=== PATIENT | male | born 1950 | race Caucasian/White ===

== ENCOUNTER 2017-04-28 04:38 | Inpatient (IN) | payer OTHER, MEDICARE ==
[~2017-04-28] VITALS: Ht 167.6 cm; Wt 88.2 kg
[~2017-04-28 04:38] MED LIST: ALBU90OI6 INH
[2017-04-28 05:04] LABS: PCO2 Arterial 53.9 mmHg (35-45); PO2 Arterial 102 mmHg (80-100); pH Blood Arterial 7.31 (7.35-7.45)
[2017-04-28 05:04] LABS: BASOPHILS ABSOLUTE AUTO 0.14 K/mm3 (0.00-0.23); BASOPHILS PERCENT AUTO 1 % (0-2); EOSINOPHILS ABSOLUTE AUTO 0.68 K/mm3 (0.00-0.68); EOSINOPHILS PERCENT AUTO 7 % (0-6); Hemoglobin 14.9 g/dL (13.5-17.5); IMMATURE GRAN ABSOLUTE AUTO 0.04 K/mm3 (0.00-0.10); IMMATURE GRAN PERCENT AUTO 0 % (0-1); LYMPHOCYTES ABSOLUTE AUTO 2.89 K/mm3 (0.84-5.20); LYMPHOCYTES PERCENT AUTO 29 % (21-46); MONOCYTES ABSOLUTE AUTO 0.98 K/mm3 (0.16-1.47); MONOCYTES PERCENT AUTO 10 % (4-13); Mean Corpuscular HGB 28.3 pg (26.0-34.0); Mean Corpuscular HGB Conc 31.7 g/dL (31.5-36.5); Mean Corpuscular Volume 89 fL (80-100); Mean Platelet Volume 8.7 fL (9.1-12.4); NEUTROPHILS ABSOLUTE AUTO 5.37 K/mm3 (1.96-9.15); NEUTROPHILS PERCENT AUTO 53 % (41-73); Platelet Count 371 K/mm3 (150-400); RDW Coefficient Variation 13.9 % (11.7-14.2); RDW Standard Deviation 44.8 fL (35.1-46.3); Red Blood Cell Count 5.27 M/mm3 (4.30-5.90)
[2017-04-28 05:24] LABS: Alanine Aminotransfer (ALT/SGP 23 U/L (12-78); Alk Phos 86 U/L (50-136); Anion Gap 8 mmol/L (6-16); Aspartate Aminotrans (AST/SGOT 13 U/L (12-37); Bilirubin, Total 0.3 mg/dL (0.1-1.0); Blood Urea Nitrogen 15 mg/dL (8-24); Bun/Creatinine Ratio 14.3 (12.0-20.0); CO2, Blood 26 mmol/L (21-32); Calcium, Blood 9.4 mg/dL (8.5-10.1); Chloride, Blood 106 mmol/L (98-108); Creatinine, Blood 1.05 mg/dL (0.60-1.20); Globulin, Blood 4.1 g/dL (2.2-4.0); Glomerular Filtration Rate >60 (60-); Glucose, Blood 114 mg/dL (70-99); Magnesium, Blood 2.4 mg/dL (1.6-2.4); Potassium, Blood 4.2 mmol/L (3.5-5.5); Sodium, Blood 140 mmol/L (136-145); Total Protein, Blood 8.1 g/dL (6.4-8.2)
[2017-04-28 06:10] LABS: Influenza A Negative (NEGATIVE); Influenza B Negative (NEGATIVE)
[2017-04-29 04:23] LABS: PCO2 Arterial 40.1 mmHg (35-45); PO2 Arterial 73.5 mmHg (80-100); pH Blood Arterial 7.41 (7.35-7.45)
[2017-04-29 05:31] LABS: BASOPHILS ABSOLUTE AUTO 0.01 K/mm3 (0.00-0.23); BASOPHILS PERCENT AUTO 0 % (0-2); EOSINOPHILS ABSOLUTE AUTO 0.01 K/mm3 (0.00-0.68); EOSINOPHILS PERCENT AUTO 0 % (0-6); Hematocrit 43.7 % (37.0-53.0); Hemoglobin 14.1 g/dL (13.5-17.5); IMMATURE GRAN PERCENT AUTO 1 % (0-1); LYMPHOCYTES ABSOLUTE AUTO 0.73 K/mm3 (0.84-5.20); LYMPHOCYTES PERCENT AUTO 5 % (21-46); MONOCYTES ABSOLUTE AUTO 0.63 K/mm3 (0.16-1.47); MONOCYTES PERCENT AUTO 4 % (4-13); Mean Corpuscular HGB 28.5 pg (26.0-34.0); Mean Corpuscular HGB Conc 32.3 g/dL (31.5-36.5); Mean Corpuscular Volume 88 fL (80-100); Mean Platelet Volume 8.9 fL (9.1-12.4); NEUTROPHILS ABSOLUTE AUTO 13.48 K/mm3 (1.96-9.15); NEUTROPHILS PERCENT AUTO 90 % (41-73); Platelet Count 322 K/mm3 (150-400); RDW Coefficient Variation 14.1 % (11.7-14.2); Red Blood Cell Count 4.95 M/mm3 (4.30-5.90); White Blood Cell Count 14.96 K/mm3 (4.00-11.30)
[2017-04-29 05:52] LABS: Anion Gap 8 mmol/L (6-16); Blood Urea Nitrogen 19 mg/dL (8-24); Bun/Creatinine Ratio 18.4 (12.0-20.0); CO2, Blood 27 mmol/L (21-32); Calcium, Blood 9.2 mg/dL (8.5-10.1); Chloride, Blood 104 mmol/L (98-108); Creatinine, Blood 1.03 mg/dL (0.60-1.20); Glomerular Filtration Rate >60 (60-); Glucose, Blood 137 mg/dL (70-99); Potassium, Blood 3.9 mmol/L (3.5-5.5); Sodium, Blood 139 mmol/L (136-145)
[2017-04-30 11:41] LABS: BASOPHILS ABSOLUTE AUTO 0.02 K/mm3 (0.00-0.23); BASOPHILS PERCENT AUTO 0 % (0-2); EOSINOPHILS ABSOLUTE AUTO 0.01 K/mm3 (0.00-0.68); EOSINOPHILS PERCENT AUTO 0 % (0-6); Hematocrit 39.7 % (37.0-53.0); Hemoglobin 12.5 g/dL (13.5-17.5); IMMATURE GRAN ABSOLUTE AUTO 0.19 K/mm3 (0.00-0.10); IMMATURE GRAN PERCENT AUTO 1 % (0-1); LYMPHOCYTES ABSOLUTE AUTO 0.69 K/mm3 (0.84-5.20); LYMPHOCYTES PERCENT AUTO 4 % (21-46); MONOCYTES ABSOLUTE AUTO 1.66 K/mm3 (0.16-1.47); MONOCYTES PERCENT AUTO 10 % (4-13); Mean Corpuscular HGB 28.5 pg (26.0-34.0); Mean Corpuscular HGB Conc 31.5 g/dL (31.5-36.5); Mean Corpuscular Volume 90 fL (80-100); Mean Platelet Volume 8.7 fL (9.1-12.4); NEUTROPHILS ABSOLUTE AUTO 13.78 K/mm3 (1.96-9.15); NEUTROPHILS PERCENT AUTO 84 % (41-73); Platelet Count 300 K/mm3 (150-400); RDW Coefficient Variation 14.3 % (11.7-14.2); RDW Standard Deviation 47.2 fL (35.1-46.3); Red Blood Cell Count 4.39 M/mm3 (4.30-5.90); White Blood Cell Count 16.35 K/mm3 (4.00-11.30)
[2017-04-30 12:18] LABS: Anion Gap 8 mmol/L (6-16); Blood Urea Nitrogen 28 mg/dL (8-24); Bun/Creatinine Ratio 25.7 (12.0-20.0); CO2, Blood 27 mmol/L (21-32); Calcium, Blood 8.9 mg/dL (8.5-10.1); Chloride, Blood 107 mmol/L (98-108); Creatinine, Blood 1.09 mg/dL (0.60-1.20); Glomerular Filtration Rate >60 (60-); Glucose, Blood 115 mg/dL (70-99); Potassium, Blood 4.1 mmol/L (3.5-5.5); Sodium, Blood 142 mmol/L (136-145)
[2017-05-02 05:21] LABS: BASOPHILS ABSOLUTE AUTO 0.01 K/mm3 (0.00-0.23); BASOPHILS PERCENT AUTO 0 % (0-2); EOSINOPHILS ABSOLUTE AUTO 0.21 K/mm3 (0.00-0.68); EOSINOPHILS PERCENT AUTO 2 % (0-6); Hematocrit 42.8 % (37.0-53.0); Hemoglobin 13.7 g/dL (13.5-17.5); IMMATURE GRAN ABSOLUTE AUTO 0.08 K/mm3 (0.00-0.10); IMMATURE GRAN PERCENT AUTO 1 % (0-1); LYMPHOCYTES ABSOLUTE AUTO 2.21 K/mm3 (0.84-5.20); LYMPHOCYTES PERCENT AUTO 22 % (21-46); MONOCYTES ABSOLUTE AUTO 0.93 K/mm3 (0.16-1.47); MONOCYTES PERCENT AUTO 9 % (4-13); Mean Corpuscular HGB 28.5 pg (26.0-34.0); Mean Corpuscular Volume 89 fL (80-100); Mean Platelet Volume 8.8 fL (9.1-12.4); NEUTROPHILS PERCENT AUTO 66 % (41-73); Platelet Count 304 K/mm3 (150-400); RDW Coefficient Variation 13.8 % (11.7-14.2); RDW Standard Deviation 45.1 fL (35.1-46.3); White Blood Cell Count 10.04 K/mm3 (4.00-11.30)
[2017-05-02 05:45] LABS: Alanine Aminotransfer (ALT/SGP 31 U/L (12-78); Albumin, Blood 3.2 g/dL (3.4-5.0); Albumin/Globulin Ratio 0.9 (0.8-1.8); Alk Phos 63 U/L (50-136); Anion Gap 6 mmol/L (6-16); Aspartate Aminotrans (AST/SGOT 13 U/L (12-37); Bilirubin, Total 0.4 mg/dL (0.1-1.0); Blood Urea Nitrogen 23 mg/dL (8-24); Bun/Creatinine Ratio 20.4 (12.0-20.0); CO2, Blood 30 mmol/L (21-32); Calcium, Blood 8.6 mg/dL (8.5-10.1); Chloride, Blood 107 mmol/L (98-108); Creatinine, Blood 1.13 mg/dL (0.60-1.20); Globulin, Blood 3.5 g/dL (2.2-4.0); Glomerular Filtration Rate >60 (60-); Glucose, Blood 85 mg/dL (70-99); Magnesium, Blood 2.6 mg/dL (1.6-2.4); Potassium, Blood 3.8 mmol/L (3.5-5.5); Sodium, Blood 143 mmol/L (136-145); Total Protein, Blood 6.7 g/dL (6.4-8.2)
[2017-05-04] MEDS ORDERED: Tessalon200 MG PO (12:08)
[2017-05-04] MEDS ORDERED: GUAI600T33 PO (12:08)
[2017-05-04] MEDS ORDERED: PANT40 PO (12:09)
[2017-05-04] MEDS ORDERED: TIOT18 INH (12:10)
[2017-05-04] MEDS ORDERED: (None)20 M1 PO (12:10)
[2017-05-04] MEDS ORDERED: FLUT1DIS5 INH (12:11)
[2017-05-04] MEDS ORDERED: ALBU2.5V5 INH (12:12)
== END 2017-05-04 12:54 | disposition home or self-care (01) | DRG 871 ==
LOC: ER 04:38 → PCU 05:43 → MEDS 05:43 → PCU 08:10 → MEDS 05-03 13:34 → ENPENDDIS 05-04 10:00 → MEDS 05-04 12:54
PROVIDERS: Emergency Medicine; Internal Medicine
PROC: 5A09557 Assistance with Respiratory Ventilation, Greater than 96 Consecutive Hours, Continuous Positive Airway Pressure (ICD-10-PCS; principal; 2017-04-28)
DX: A41.9 Sepsis, unspecified organism (principal); J96.02 Acute respiratory failure with hypercapnia; J96.01 Acute respiratory failure with hypoxia; J44.1 Chronic obstructive pulmonary disease with (acute) exacerbation; E11.9 Type 2 diabetes mellitus without complications; F41.9 Anxiety disorder, unspecified; D63.8 Anemia in other chronic diseases classified elsewhere; I10 Essential (primary) hypertension; R65.20 Severe sepsis without septic shock; K29.70 Gastritis, unspecified, without bleeding; I25.10 Atherosclerotic heart disease of native coronary artery without angina pectoris; T17.990A Other foreign object in respiratory tract, part unspecified in causing asphyxiation, initial encounter; Z95.1 Presence of aortocoronary bypass graft; Z95.5 Presence of coronary angioplasty implant and graft; Z79.899 Other long term (current) drug therapy; Z87.891 Personal history of nicotine dependence; Z66 Do not resuscitate; Z88.0 Allergy status to penicillin; Z91.018 Allergy to other foods
CPT/HCPCS: 36415; 36600; 71045; 71260; 76705; 80048; 80053; 82803; 83605; 83735; 84145; 85025; 87040; 87070; 87205; 87804; 93005; 93010; 94060; 94640; 94644; 94660; 94664; 94667; 94668; 94760; 94762; 96365; 96375; 97161; 97165; 97530; 98960; 99285; C9113; G8978; G8979; G8980; G8987; G8988; G8989; J0360; J0456; J1956; J2060; J2405; J2765; J2930; J3475; J7050; Q9967

== ENCOUNTER → 2021-10-19 | Outpatient (CLI) | payer OTHER ==
[~2021-10-19] MED LIST changes: +(None)20 M1 PO; +ALBU2.5V5 INH; +FLUT1DIS5 INH; +GUAI600T33 PO; +MECL25 PO; +PANT40 PO; +TIOT18 INH; +Tessalon200 MG PO
[2021-10-24 10:10] LABS: HSV-1 DNA Negative (Negative); HSV-2 DNA Negative (Negative)
== END | disposition home or self-care (01) ==
LOC: LAB SHORT 09:14
PROVIDERS: Physician Assistant Medical
DX: R21 Rash and other nonspecific skin eruption (principal)
CPT/HCPCS: 87529; 87798

== ENCOUNTER 2022-01-06 12:37 | Emergency (ER) | payer OTHER ==
[~2022-01-06] VITALS: Ht 175.3 cm; Wt 86.2 kg
[2022-01-06 13:35] LABS: Calcium, Ionized (POC) 1.18 mmol/L (1.10-1.46); Chloride (POC) 104 mmol/L (98-108); Creatinine (POC) 0.9 mg/dL (0.8-1.3); Glucose (ISTAT POC) 111 mg/dL (70-99); Potassium (POC) 3.9 mmol/L (3.5-5.5); Sodium (POC) 141 mmol/L (135-148); Total CO2 (POC) 25 mmol/L (21-32)
== END 2022-01-06 13:52 | disposition home or self-care (01) ==
LOC: ER 12:37
PROVIDERS: Emergency Medicine
DX: R20.2 Paresthesia of skin (principal); Z87.891 Personal history of nicotine dependence
CPT/HCPCS: 80047; 82947; 85014; 99284

== ENCOUNTER 2022-01-10 09:30 | Inpatient (IN) | payer OTHER ==
[~2022-01-10] VITALS: Ht 175.3 cm; Wt 77.7 kg
[2022-01-10 09:56] LABS: BASOPHILS ABSOLUTE AUTO 0.06 K/mm3 (0.00-0.23); BASOPHILS PERCENT AUTO 1 % (0-2); EOSINOPHILS ABSOLUTE AUTO 0.13 K/mm3 (0.00-0.68); EOSINOPHILS PERCENT AUTO 2 % (0-6); Hematocrit 48.5 % (37.0-53.0); Hemoglobin 16.3 g/dL (13.5-17.5); IMMATURE GRAN ABSOLUTE AUTO 0.02 K/mm3 (0.00-0.10); IMMATURE GRAN PERCENT AUTO 0 % (0-1); LYMPHOCYTES ABSOLUTE AUTO 2.12 K/mm3 (0.84-5.20); LYMPHOCYTES PERCENT AUTO 31 % (21-46); MONOCYTES ABSOLUTE AUTO 0.61 K/mm3 (0.16-1.47); MONOCYTES PERCENT AUTO 9 % (4-13); Mean Corpuscular HGB 29.5 pg (26.0-34.0); Mean Corpuscular HGB Conc 33.6 g/dL (31.5-36.5); Mean Corpuscular Volume 88 fL (80-100); Mean Platelet Volume 9.1 fL (9.1-12.4); NEUTROPHILS ABSOLUTE AUTO 3.99 K/mm3 (1.96-9.15); NEUTROPHILS PERCENT AUTO 58 % (41-73); Platelet Count 328 K/mm3 (150-400); RDW Coefficient Variation 13.3 % (11.7-14.2); Red Blood Cell Count 5.53 M/mm3 (4.30-5.90); White Blood Cell Count 6.93 K/mm3 (4.00-11.30)
[2022-01-10 10:17] LABS: Alanine Aminotransfer (ALT/SGP 26 U/L (12-78); Albumin, Blood 4.2 g/dL (3.4-5.0); Albumin/Globulin Ratio 1.1 (0.8-1.8); Alk Phos 94 U/L (50-136); Anion Gap 6 mmol/L (6-16); Aspartate Aminotrans (AST/SGOT 16 U/L (12-37); Bilirubin, Total 0.3 mg/dL (0.1-1.0); Blood Urea Nitrogen 17 mg/dL (8-24); CO2, Blood 27 mmol/L (21-32); Calcium, Blood 10.1 mg/dL (8.5-10.1); Chloride, Blood 110 mmol/L (98-108); Creatinine, Blood 0.85 mg/dL (0.60-1.20); Ethanol (Alcohol), Blood, Med <3 mg/dL; Globulin, Blood 3.9 g/dL (2.2-4.0); Glomerular Filtration Rate 92 (60-); Glucose, Blood 121 mg/dL (70-99); Potassium, Blood 3.9 mmol/L (3.5-5.5); Sodium, Blood 143 mmol/L (136-145); Total Protein, Blood 8.1 g/dL (6.4-8.2)
[2022-01-10 11:18] LABS: International Normalized Ratio 1.04; Prothrombin Time Results 10.9 Sec (9.7-11.5)
[2022-01-10] MEDS ORDERED: NITR.4SL SL (11:43)
--- NOTE | 2022-01-10 18:49 | NUR ---
SHIFT SUMMARY PT ADMITTED FROM ED FOR CVA. PT HAS LEFT SIDED DEFICITS WITH SLURRED SPEACH AT TIMES. A&OX4. PHYSICAL THERAPY EVALUATED PT AND RECOMENDED 1 ASSIST WITH BED ALARM ON. PT USES CALL LIGHT APPORPRIATELY. BED IN LOWEST POSITION AND CALL LIGHT IN REACH.
--- NOTE | 2022-01-11 04:39 | NUR ---
OCEAN FISHING GUIDE SUMMARY: A&Ox4. LEFT-SIDED DEFICIT RELATED TO CVA IMPAIRING GAIT AND AMBULATION, BUT HE STATES HE HAS BEEN DEALING WITH THIS LEFT-SIDED DEFICIT AND DIZZINESS FOR QUITE SOME TIME AND IS ACCLIMATED TO IT AND DOES NOT CALL WHEN HE NEEDS TO USE THE BATHROOM. ULTIMATELY, THIS RN ASSISTED HIM IN AMBULATING TO THE BATHROOM ON THREE OCCASIONAS. ERGO, BED ALARM HAS BEEN ACTIVATED. REFUSED IV FLUIDS, STATING HE WOULD PREFER TO REPLENISH FLUIDS PO AND HAS CONSUMED 80oz H2O THIS SHIFT. EDUCATION REGARDING FLUSHING OUT SODIUM AND IV FLUIDS HELPING TO REPLENISH ELECTROLYTES, BUT HE CONTINUES TO DECLINE. NO C/O PAIN OR DISCOMFORT. DID NOT SLEEP WELL, STATING HE DOES NOT USUALLY SLEEP WELL AT HOME, AND REALLY DOES NOT LIKE THESE BEDS THEY ARE UNCOMFORTABLE. TELE SINUS RHYTHM @ 62bpm. MRI ORDERED FOR TODAY. WILL REPORT TO ONCOMING RN.
[2022-01-11 05:15] LABS: CHOL/HDL RATIO 7.9; Cholesterol 277 mg/dL (50-200); HDL Cholesterol 35 mg/dL (>39); LDL/HDL RATIO 5.3; Low Density Lipoprotein Chol 186 mg/dL (0-110); Triglycerides 278 mg/dL (30-160); Very Low Density Lipoprot Chol 55 mg/dL (6-32)
--- NOTE | 2022-01-11 17:22 | NUR ---
LATE ENTRY/MRI 1545: PT TAKEN DOWN FOR MRI. RETURNED TO ROOM WITHOUT HAVING MRI DONE. PT STATES HE IS CLAUSTROPHOBIC. OFFERED PT THE OPTION OF MAKING A PHONE CALL TO MD TO TRY AND OBTAIN AN ORDER FOR ANTI-ANXIETY MEDICATION. PT REFUSED MEDICATION AND REFUSED HAVING THE MRI. PLACED A CALL TO DR. ROUSSEAU ([phone]) AND DEEPA.
--- NOTE | 2022-01-11 18:29 | NUR ---
SHIFT SUMMARY PT A&O X 4. VSS. PT WITH L SIDED WEAKNESS D/T STROKE. PT C/O DIZZINESS OFF & ON UPON RISING TO STANDING POSITION. C/O NOT HAVING HIS INDEPENDENCE TO WALK TO THE RESTROOM OR TO GET UP TO CHAIR OR BACK TO BED WHEN HE WANTS. ATTEMPTS TO EDUCATE PT ARE MET WITH HIS RESISTANCE. HE WILL RELUCTANTLY USE A WALKER WHEN ENCOURAGED TO DO SO. SAFETY REGARDING MOBILITY HAS BEEN REINFORCED TO HIM. HE HAS REFUSED HIS MRI THAT WAS ORDERED, SNF PLACEMENT & HOME HE[facility] UPON DC. LVM ON MD's PHONE REGARDING PT'S REFUSAL OF THE MRI.
--- NOTE | 2022-01-12 04:33 | NUR ---
FRUIT HARVEST MACHINE OPERATOR SUMMARY: A&Ox4. NONCOMPLIANT AND UNCOOPERATIVE WITH CARE. DID NOT USE CALL LIGHT ALL NIGHT AND REFUSED ALL CARE. UPSET AND WOULD LIKE HIS HOME MEDICATIONS TO BE RESTARTED AND IS UPSET THEY ARE UNAVAILABLE. STATES HE WOULD HAVE LEFT ALREADY, HAD HE HAD A RIDE HOME. CONTINUES TO C/O INTERMITTENT NUMBNESS AND SLURRED SPEECH. TELE SINUS @ 62 bpm. NO ACUTE CONCERNS T/O THE NIGHT AND HAS STAYED IN HIS BED MAJORITY OF THE NIGHT. WILL REPORT TO ONCOMING RN.
[2022-01-12] MEDS ORDERED: ASPI81CH PO (11:12)
[2022-01-12] MEDS ORDERED: ACET325 PO (11:12)
[2022-01-12] MEDS ORDERED: ATOR40TA PO (11:13)
[2022-01-12] MEDS ORDERED: CLOP75 PO (11:15)
[2022-01-12] MEDS ORDERED: Prinivil10 MG PO (11:15)
--- NOTE | 2022-01-12 16:02 | NUR ---
LATE ENTRY/DC HOME 1305: WRITTEN & VERBAL DC INSTRUCTIONS GIVEN TO PT WITH GOOD UNDERSTANDING VERBALIZED BY PT. ALL QUESTIONS ANSWERED. PIV DC'D WITH CATH TIP INTACT, NO REDNESS OR SWELLING NOTED. ALL NEW SCRIPTS FAXED TO [facility] PER PT REQUEST. PT TO TAXI VIA W/C WITH ALL PERSONAL BELONGINGS.
== END 2022-01-12 13:33 | disposition home health service (06) | DRG 65 ==
LOC: ER 09:30 → ERHOLD 13:12 → MEDS 13:12
PROVIDERS: Emergency Medicine; Nurse Practitioner Acute Care; ADMIT Internal Medicine
DX: I63.9 Cerebral infarction, unspecified (principal); G81.94 Hemiplegia, unspecified affecting left nondominant side; I50.22 Chronic systolic (congestive) heart failure; Z66 Do not resuscitate; I25.10 Atherosclerotic heart disease of native coronary artery without angina pectoris; R47.1 Dysarthria and anarthria; R20.0 Anesthesia of skin; I11.0 Hypertensive heart disease with heart failure; E11.9 Type 2 diabetes mellitus without complications; J44.9 Chronic obstructive pulmonary disease, unspecified; Z95.1 Presence of aortocoronary bypass graft; Z95.5 Presence of coronary angioplasty implant and graft; Z98.890 Other specified postprocedural states; Z87.891 Personal history of nicotine dependence; Z88.0 Allergy status to penicillin; Z91.010 Allergy to peanuts
CPT/HCPCS: 36415; 70450; 70496; 70498; 80053; 80061; 82947; 83036; 85025; 85610; 85730; 92526; 92610; 93005; 93010; 93306; 94760; 97112; 97116; 97162; 97166; 97530; 99285-25; A9270; G0480; J1650; Q9967

== ENCOUNTER 2022-10-09 09:39 | Inpatient (IN) | payer OTHER ==
[~2022-10-09] VITALS: Ht 175.3 cm; Wt 82.0 kg
[~2022-10-09 09:39] MED LIST changes: +ACET325 PO; +ASPI81CH PO; +ATOR40TA PO; +CLOP75 PO; +NITR.4SL SL; +Prinivil10 MG PO
[2022-10-09 11:50] LABS: BASOPHILS ABSOLUTE AUTO 0.06 K/mm3 (0.00-0.23); BASOPHILS PERCENT AUTO 1 % (0-2); EOSINOPHILS ABSOLUTE AUTO 0.09 K/mm3 (0.00-0.68); EOSINOPHILS PERCENT AUTO 1 % (0-6); IMMATURE GRAN ABSOLUTE AUTO 0.03 K/mm3 (0.00-0.10); IMMATURE GRAN PERCENT AUTO 0 % (0-1); LYMPHOCYTES PERCENT AUTO 14 % (21-46); MONOCYTES ABSOLUTE AUTO 0.56 K/mm3 (0.16-1.47); MONOCYTES PERCENT AUTO 7 % (4-13); Mean Corpuscular HGB 29.6 pg (26.0-34.0); Mean Corpuscular HGB Conc 32.6 g/dL (31.5-36.5); Mean Corpuscular Volume 91 fL (80-100); NEUTROPHILS ABSOLUTE AUTO 6.17 K/mm3 (1.96-9.15); NEUTROPHILS PERCENT AUTO 77 % (41-73); Platelet Count 271 K/mm3 (150-400); RDW Standard Deviation 46.3 fL (35.1-46.3); Red Blood Cell Count 5.07 M/mm3 (4.30-5.90); White Blood Cell Count 8.01 K/mm3 (4.00-11.30)
[2022-10-09 12:15] LABS: Albumin, Blood 4.1 g/dL (3.4-5.0); Albumin/Globulin Ratio 1.1 (0.8-1.8); Bilirubin, Total 0.3 mg/dL (0.1-1.0); Bun/Creatinine Ratio 22.1 (12.0-20.0); Calcium, Blood 9.6 mg/dL (8.5-10.1); Creatinine, Blood 0.86 mg/dL (0.60-1.20); Globulin, Blood 3.7 g/dL (2.2-4.0); Potassium, Blood 3.9 mmol/L (3.5-5.5); Total Protein, Blood 7.8 g/dL (6.4-8.2)
[2022-10-09 16:32] LABS: Anti-Xa UFH, PHA Monitoring <0.10 IU/mL; International Normalized Ratio 0.97; Prothrombin Time Results 10.2 Sec (9.7-11.5)
[2022-10-09 17:35] VITALS: BP 157/73
--- NOTE | 2022-10-09 18:09 | NUR ---
ADMIT NOTE PT IS ALERT AND ORIENTED X 4, VSS, HE IS ON RA. HE DENIES FEELINGS OF CHEST PAIN/PRESSURE AT THIS TIME, HE DENIES FEELING SOB WELL NAUSEA/VOMITTING. HEPARIN DRIP STARTED BY THIS RN. PT WAS ORIENTED TO ROOM/UNIT. HE WAS EDUCATED REGARDING SAFETY AND NEED TO CALL FOR ASSISTANCE DUE TO HEPARIN DRIP. NO COUGH NOTED. CARDIAC DIET ORDER IN PLACE BUT PT WILL BE NPO AT MIDNIGHT. WILL CONTINUE TO MONITOR UNITL REPORT GIVEN.
[2022-10-09 20:39] VITALS: BP 143/67
[2022-10-09 23:12] VITALS: BP 127/67
[2022-10-10 01:58] VITALS: BP 121/82
[2022-10-10 02:16] LABS: BASOPHILS ABSOLUTE AUTO 0.06 K/mm3 (0.00-0.23); BASOPHILS PERCENT AUTO 1 % (0-2); EOSINOPHILS ABSOLUTE AUTO 0.13 K/mm3 (0.00-0.68); EOSINOPHILS PERCENT AUTO 2 % (0-6); Hematocrit 40.6 % (37.0-53.0); Hemoglobin 13.7 g/dL (13.5-17.5); IMMATURE GRAN ABSOLUTE AUTO 0.05 K/mm3 (0.00-0.10); IMMATURE GRAN PERCENT AUTO 1 % (0-1); LYMPHOCYTES ABSOLUTE AUTO 1.69 K/mm3 (0.84-5.20); LYMPHOCYTES PERCENT AUTO 27 % (21-46); MONOCYTES ABSOLUTE AUTO 0.62 K/mm3 (0.16-1.47); MONOCYTES PERCENT AUTO 10 % (4-13); Mean Corpuscular HGB 29.5 pg (26.0-34.0); Mean Corpuscular HGB Conc 33.7 g/dL (31.5-36.5); Mean Corpuscular Volume 87 fL (80-100); Mean Platelet Volume 9.1 fL (9.1-12.4); NEUTROPHILS ABSOLUTE AUTO 3.83 K/mm3 (1.96-9.15); NEUTROPHILS PERCENT AUTO 60 % (41-73); Platelet Count 255 K/mm3 (150-400); RDW Standard Deviation 44.5 fL (35.1-46.3); Red Blood Cell Count 4.65 M/mm3 (4.30-5.90); White Blood Cell Count 6.38 K/mm3 (4.00-11.30)
[2022-10-10 02:36] LABS: Anion Gap 8 mmol/L (6-16); Blood Urea Nitrogen 22 mg/dL (8-24); Bun/Creatinine Ratio 25.3 (12.0-20.0); CHOL/HDL RATIO 6.9; CO2, Blood 25 mmol/L (21-32); Chloride, Blood 111 mmol/L (98-108); Cholesterol 288 mg/dL (50-200); Creatinine, Blood 0.87 mg/dL (0.60-1.20); Glomerular Filtration Rate 91 (60-); Glucose, Blood 100 mg/dL (70-99); HDL Cholesterol 42 mg/dL (>39); Low Density Lipoprotein Chol 210 mg/dL (0-110); Potassium, Blood 3.8 mmol/L (3.5-5.5); Sodium, Blood 144 mmol/L (136-145); Triglycerides 180 mg/dL (30-160); Very Low Density Lipoprot Chol 36 mg/dL (6-32)
--- NOTE | 2022-10-10 04:12 | NUR ---
SHIFT SUMMARY PATIENT IS ALERT AND ORIENTED X4. 02 SATS >95% ON RA, DENIES SOB. HR SR 60s, BP STABLE. DENIES CP/PRESSURE THIS SHIFT. UP TO BATHROOM INDEPENDENT. NPO SINCE MIDNIGHT. HEPARIN DRIP INFUSING. CALL LIGHT IN REACH
--- NOTE | 2022-10-10 05:01 | NUR ---
IGNITION RISK ASSESSED THIS SHIFT, PATIENT STATES UNDERSTANDING. NO RISK AT THIS TIME.
[2022-10-10 07:25] VITALS: BP 131/62
--- NOTE | 2022-10-10 09:19 | NUR ---
MORNING EVENT WITH AGGITATION. DR. DURAN AND CERTIFIED PARALEGAL WERE IN THE PT'S ROOM. I STEPPED IN TO HEAR THE CONVERSATIONS. DR. DURAN EXPLAINED THAT THE PT WILL STOPP HIS HEP GTT AND AFTER THE SCHO IS COMPLETE THEN HE WILL GO IN FOR HIS ANGIO. I STEPPED OUT TO HELP ANOTHER PT AND GOT CALLED BACK TO THE ROOM BY THE FRYLINE ATTENDANT. THE PT WAS YELLING AT THE CERTIFIED PARALEGAL, COMPLAING OF CHEST PAIN, WAS REFUSING CARE, AND WAS THREATING TO LEAVE BECAUSE HE WAS IN PAIN. PT WAS GOING TO TAKE HIS HOME NITRO PILLS, AN ORDER WAS OBTAINED. THE PT WAS YELLING AT STAFF, CUTTING OFF STAFF WE WERE TRYING TO SPEAK TO HIM. VAT TENDER, BEVERAGE STEWARD, AND RALF ELDRIDGE IN THE ROOM WITH THE PT. WE TRIED EXPLAINING THAT THE ANGIO ANDD ECHO WILL HELP DETERMINE WHY THE PT IS HAVING PAIN. PT STILL AGGITATED AND DR. DURAN CAME BACK TO BEDSIDE. HE WAS ABLE TO GE THE PT TO FINISH THE ECHO. DR. DURAN CALLED THE PT'S SISTER AND TALKED ABOUT CONCERNS FOR DOING THE ANGIO. THE SISTER, BEVERAGE STEWARD GABE, AND DR. JOSE ALL IN AGREEMENT TO STOP THE ANGIO. DR. JOSE, BEVERAGE STEWARD, AND MYSELF WERE IN THE ROOM AFTER THE ECHO WAS COMPLETE TO TELL THE PT THAT HE WILL BE MEDICALLY MANAGED BY THE HOSPITALIST. ANGIO IS TOO HIGH OF RISK WITH THE PT'S CARDIAC HISTORY, NONCOMPLIANCE WITH MEDICATIONS, HX. OF PTSD, AND THE AGGITATION THE PT HAS BEEN SHOWING. AFTER DR. JOSE LEFT THE PT STARTED TO YELL AT THE BEVERAGE STEWARD GABE ABOUT HOW WE ARE NOT DOING ANYTHING AND HOW HE HAS BEEN DEALING WITH THIS FOR 12 YEARS. SILVIANO ELDRIDGE REICFORCED THAT THE PT CAN NOT SPEAK TO STAFF IN THAT MANNOR. PT IS THREATENING TO LEAVE AMA. MAD CONSULT PLACED. SEE NOTES FOR UPDATES.
--- NOTE | 2022-10-10 10:26 | NUR ---
MAD Consult: Met with Security, Clincal Coordinator, Charge Nurse, Nursing Talent Engineer, and patient's nurse. Overall feeling was that patient had already received instruction that verbally abusive behavior was unacceptable and that having us go in and speak with him would only make things worse. Asked that a Behavioral IRIS be placed and to call me or Security if staff changed their minds.
[2022-10-10 11:02] VITALS: BP 150/69
--- NOTE | 2022-10-10 11:25 | NUR ---
Pt. is awake in bed and welcomed my visit. Pt. is unsettled by several things including the feeling that the source of his pain and discomfort has been identified for many years. Listen with empathy and a calming presence. Facilitated a life review where Pt. verbalized that he had served in [place] and has PTSD. Again listen with empathy and honor. Pt. displays evidence of greatest agitation when speaking about his den. Considered matters of den and belief for quite some time. Pt. verbally anckowledged that he knows his bold speach a problem. Some Manufacturing Engineering Technician senior genetic counselor is given. Prayed with Pt. Pt. displayed some evidence of trust, and welcomed this billing analyst to return.
[2022-10-10 16:14] VITALS: BP 150/56
--- NOTE | 2022-10-10 17:05 | NUR ---
SHIFT SUMMARY PT IS A&OX4. HE HAS BEEN VERY IRRITABLE TODAY BUT SEEMS TO ACT MORE APPROPRIATE WHEN FAMILY IS IN THE ROOM. SEE MORNING NOTE ABOUT AGGITATION. PT WAS PLACED ON A CARDIAC DIET AND HIS ANGINA IS GOING TO BE MANAGED MEDICALLY. PT IS ON A HEP GTT, STARTED ON PLAVIX, AND IS GETTING IMDUR IN THE MORNINGS. PT HAS AMBUALTED THE UNIT AND IS IND IN THE ROOM. V/S STABLE. NO MORE REPORTS OF ANGINA SINE THE MORNINGS EPISODE. PT ON RA AND DENIES ANY SOB. BED IN LOW, CALL LIGHT IN REACH. PT AND FAMILY ASSESSED/EDUCATED ON FIRE IGNITION RISKS AND SAFTEY.
[2022-10-10 19:59] VITALS: BP 122/61
[2022-10-10 23:56] VITALS: BP 118/47
[2022-10-11 03:32] VITALS: BP 131/59
--- NOTE | 2022-10-11 06:51 | NUR ---
SHIFT SUMMARY PATIENT ALERT AND ORIENTED X4. INDEPENDENT IN HIS ROOM. PATIENT DENIES SHORTNESS OF BREATH. ABOUT 0300 PATIENT REPORTED EXPERIENCING RIGHT SIDED CHEST PAIN RATED 8/10, RESOLVED AFTER TWO DOSES OF NITRO. PATIENT WAS AGITATED AND ASKING WHY HE WASN'T ABLE TO GET AN ANGIOGRAM. PATIENT REFUSED HIS MORNING LAB DRAW AND IS REFUSING TO GIVE UP HIS NITRO TABS THAT HE KEEPS IN HIS SHIRT POCKET, SELF ADMINISTERED A DOSE AROUND 0630 WITHOUT INFORMING THIS RN. PATIENT EDUCATED THAT NITRO REDUCES BLOOD PRESSURE AND THAT HE AT LEAST NEEDS TO INFORM HIS NURSE SO THAT HIS BLOOD PRESSURE CAN BE MONITORED. PATIENT STATED THAT "I GET TIRED OF PRESSING THE BUTTON" AND "I JUST WANT TO UNPLUG MYSELF FROM EVERYTHING AND WALK OUT OF HERE." PATIENT EDUCATED ON FIRE SAFETY AND IGNITION SOURCES IN THE HOSPITAL. WILL CONTINUE TO MONITOR. CALL LIGHT WITHIN REACH.
[2022-10-11 07:25] VITALS: BP 148/69
[2022-10-11 08:33] LABS: BASOPHILS ABSOLUTE AUTO 0.07 K/mm3 (0.00-0.23); BASOPHILS PERCENT AUTO 1 % (0-2); EOSINOPHILS ABSOLUTE AUTO 0.23 K/mm3 (0.00-0.68); EOSINOPHILS PERCENT AUTO 3 % (0-6); Hematocrit 44.5 % (37.0-53.0); Hemoglobin 14.9 g/dL (13.5-17.5); IMMATURE GRAN ABSOLUTE AUTO 0.02 K/mm3 (0.00-0.10); IMMATURE GRAN PERCENT AUTO 0 % (0-1); LYMPHOCYTES ABSOLUTE AUTO 2.63 K/mm3 (0.84-5.20); LYMPHOCYTES PERCENT AUTO 31 % (21-46); MONOCYTES ABSOLUTE AUTO 0.68 K/mm3 (0.16-1.47); MONOCYTES PERCENT AUTO 8 % (4-13); Mean Corpuscular HGB 29.9 pg (26.0-34.0); Mean Corpuscular HGB Conc 33.5 g/dL (31.5-36.5); Mean Corpuscular Volume 89 fL (80-100); Mean Platelet Volume 8.9 fL (9.1-12.4); NEUTROPHILS ABSOLUTE AUTO 4.78 K/mm3 (1.96-9.15); NEUTROPHILS PERCENT AUTO 57 % (41-73); Platelet Count 298 K/mm3 (150-400); RDW Coefficient Variation 14.2 % (11.7-14.2); RDW Standard Deviation 45.7 fL (35.1-46.3); Red Blood Cell Count 4.98 M/mm3 (4.30-5.90); White Blood Cell Count 8.41 K/mm3 (4.00-11.30)
[2022-10-11 09:02] LABS: Bun/Creatinine Ratio 21.7 (12.0-20.0); Calcium, Blood 9.4 mg/dL (8.5-10.1); Creatinine, Blood 0.92 mg/dL (0.60-1.20); Potassium, Blood 3.9 mmol/L (3.5-5.5)
--- NOTE | 2022-10-11 12:24 | NUR ---
MORNING SUMMARY PT IS A&OX4, IND IN THE ROOM, AND HAS BEEN CALLING ME APPROPRAITELY. HE IS VERRY IRRITABLE AND WAS REFUSING TO GET LABS AND GET CARE FROM OTHER STAFF MEMEBERS. THE PT AND I HAVE BUILT DECENT REPPORT AND I WAS ABLE HIM TO GET HIM TO ALLOW A BLOOD DRAW FROM LAB. PT DID HAVE SOME ANGINA THIS AM AND HIS LONG ACTING NITRATE WAS CHANGE TO TID SO HE HAS BETTER COVERAGE. FAMILY AT BEDSIDE AND THE PT IS PENDING DISCHARGE. HEP GTT DISCONTINUED FOR DISCHARGE. SEE NOTES FOR D/C SUMMARY.
[2022-10-11] MEDS ORDERED: Acetaminophen650 M1 PO (12:30)
[2022-10-11] MEDS ORDERED: ATOR80 PO (12:30)
[2022-10-11] MEDS ORDERED: Prinivil10 MG PO (12:31)
[2022-10-11] MEDS ORDERED: CLOP75 PO (12:31)
[2022-10-11] MEDS ORDERED: METO25 PO (12:32)
[2022-10-11] MEDS ORDERED: ISODIN10 PO (12:33)
== END 2022-10-11 13:15 | disposition home or self-care (01) | DRG 281 ==
LOC: ER 09:39 → MEDS 09:40 → PCU 17:31
PROVIDERS: Student in an Organized Health Care Education/Training Program; ADMIT Internal Medicine
DX: I21.4 Non-ST elevation (NSTEMI) myocardial infarction (principal); I50.22 Chronic systolic (congestive) heart failure; I69.354 Hemiplegia and hemiparesis following cerebral infarction affecting left non-dominant side; I25.10 Atherosclerotic heart disease of native coronary artery without angina pectoris; I11.0 Hypertensive heart disease with heart failure; E11.9 Type 2 diabetes mellitus without complications; Z66 Do not resuscitate; E78.5 Hyperlipidemia, unspecified; J44.9 Chronic obstructive pulmonary disease, unspecified; Z91.148 Patient's other noncompliance with medication regimen for other reason; Z88.0 Allergy status to penicillin; Z91.018 Allergy to other foods; Z79.899 Other long term (current) drug therapy; Z79.82 Long term (current) use of aspirin; Z79.02 Long term (current) use of antithrombotics/antiplatelets; Z79.811 Long term (current) use of aromatase inhibitors; Z95.1 Presence of aortocoronary bypass graft; Z98.890 Other specified postprocedural states; Z95.5 Presence of coronary angioplasty implant and graft; Z87.891 Personal history of nicotine dependence
CPT/HCPCS: 36415; 71046; 71260; 80048; 80053; 80061; 84484; 85025; 85520; 85610; 85730; 93005; 93010; 93306; 94760; 96374; 99285-25; A9270; J1644; Q9967

== ENCOUNTER 2022-12-29 20:21 | Emergency (ER) | payer OTHER ==
[~2022-12-29] VITALS: Ht 175.3 cm; Wt 77.1 kg
[~2022-12-29 20:21] MED LIST changes: +ATOR80 PO; +Acetaminophen650 M1 PO; +ISODIN10 PO; +METO25 PO
[2022-12-29 21:26] LABS: BASOPHILS ABSOLUTE AUTO 0.05 K/mm3 (0.00-0.23); BASOPHILS PERCENT AUTO 1 % (0-2); EOSINOPHILS ABSOLUTE AUTO 0.05 K/mm3 (0.00-0.68); EOSINOPHILS PERCENT AUTO 1 % (0-6); Hematocrit 47.7 % (37.0-53.0); Hemoglobin 17.3 g/dL (13.5-17.5); IMMATURE GRAN ABSOLUTE AUTO 0.15 K/mm3 (0.00-0.10); IMMATURE GRAN PERCENT AUTO 1 % (0-1); LYMPHOCYTES ABSOLUTE AUTO 2.45 K/mm3 (0.84-5.20); LYMPHOCYTES PERCENT AUTO 23 % (21-46); MONOCYTES ABSOLUTE AUTO 2.13 K/mm3 (0.16-1.47); MONOCYTES PERCENT AUTO 20 % (4-13); Mean Corpuscular HGB 29.6 pg (26.0-34.0); Mean Corpuscular HGB Conc 36.3 g/dL (31.5-36.5); Mean Corpuscular Volume 82 fL (80-100); Mean Platelet Volume 9.1 fL (9.1-12.4); NEUTROPHILS ABSOLUTE AUTO 6.01 K/mm3 (1.96-9.15); NEUTROPHILS PERCENT AUTO 55 % (41-73); Platelet Count 281 K/mm3 (150-400); RDW Coefficient Variation 13.1 % (11.7-14.2); RDW Standard Deviation 38.1 fL (35.1-46.3); Red Blood Cell Count 5.84 M/mm3 (4.30-5.90); White Blood Cell Count 10.84 K/mm3 (4.00-11.30)
[2022-12-29] MEDS ORDERED: EZET10 PO (21:36)
[2022-12-29] MEDS ORDERED: Carvedilol12.5 MG PO (21:36)
[2022-12-29 23:14] LABS: Albumin/Globulin Ratio 0.1 (0.8-1.8); Bilirubin, Total 0.5 mg/dL (0.1-1.0); Bun/Creatinine Ratio 59.6 (12.0-20.0); Calcium, Blood 9.9 mg/dL (8.5-10.1); Creatinine, Blood 1.36 mg/dL (0.60-1.20); Globulin, Blood 6.9 g/dL (2.2-4.0); Potassium, Blood 3.9 mmol/L (3.5-5.5); Total Protein, Blood 7.8 g/dL (6.4-8.2)
[2022-12-29 23:15] LABS: Albumin, Blood 0.9 g/dL (3.4-5.0)
[2022-12-29 23:53] LABS: Influenza A, PCR NEGATIVE (NEGATIVE); Influenza B, PCR NEGATIVE (NEGATIVE); Resp Syncytial Virus, PCR NEGATIVE (NEGATIVE); SARS-Cov-2 (COVID-19) PCR, MMC NEGATIVE (NEGATIVE)
[2022-12-30] MEDS ORDERED: Pepcid20 MG PO (00:51)
[2022-12-30] MEDS ORDERED: ONDA4ODT MM (00:51)
[2022-12-30] MEDS ORDERED: CARAFATE1 GM PO (05:47)
[2022-12-30 06:24] VITALS: BP 129/60
== END 2022-12-30 07:04 | disposition home or self-care (01) ==
LOC: ER 20:21
PROVIDERS: Emergency Medicine
DX: R10.13 Epigastric pain (principal); R11.2 Nausea with vomiting, unspecified; E86.0 Dehydration; Z20.822 Contact with and (suspected) exposure to COVID-19; I10 Essential (primary) hypertension; J44.9 Chronic obstructive pulmonary disease, unspecified; Z88.0 Allergy status to penicillin; Z91.018 Allergy to other foods; Z79.899 Other long term (current) drug therapy; Z79.82 Long term (current) use of aspirin
CPT/HCPCS: 0241U; 74177; 80053; 83690; 83880; 84484; 85025; 93005; 93010; 96361; 96374; 96375; 99285-25; A9270; C9113; J2405; J7030; Q9967

== ENCOUNTER 2023-01-25 05:33 | Inpatient (IN) | payer OTHER ==
[2023-01-25] VITALS (41 sets, daily range): BP systolic 110–141; BP diastolic 44–93
[~2023-01-25] VITALS: Ht 175.3 cm; Wt 72.8 kg
[~2023-01-25 05:33] MED LIST changes: +CARAFATE1 GM PO; +Carvedilol12.5 MG PO; +EZET10 PO; +ONDA4ODT MM; +Pepcid20 MG PO
[2023-01-25 06:00] LABS: BASOPHILS ABSOLUTE AUTO 0.05 K/mm3 (0.00-0.23); BASOPHILS PERCENT AUTO 1 % (0-2); EOSINOPHILS ABSOLUTE AUTO 0.28 K/mm3 (0.00-0.68); EOSINOPHILS PERCENT AUTO 5 % (0-6); Hematocrit 40.8 % (37.0-53.0); Hemoglobin 13.5 g/dL (13.5-17.5); IMMATURE GRAN ABSOLUTE AUTO 0.01 K/mm3 (0.00-0.10); IMMATURE GRAN PERCENT AUTO 0 % (0-1); LYMPHOCYTES ABSOLUTE AUTO 1.91 K/mm3 (0.84-5.20); LYMPHOCYTES PERCENT AUTO 35 % (21-46); MONOCYTES ABSOLUTE AUTO 0.52 K/mm3 (0.16-1.47); MONOCYTES PERCENT AUTO 10 % (4-13); Mean Corpuscular HGB 29.9 pg (26.0-34.0); Mean Corpuscular HGB Conc 33.1 g/dL (31.5-36.5); Mean Corpuscular Volume 90 fL (80-100); Mean Platelet Volume 8.6 fL (9.1-12.4); NEUTROPHILS ABSOLUTE AUTO 2.71 K/mm3 (1.96-9.15); NEUTROPHILS PERCENT AUTO 49 % (41-73); Platelet Count 328 K/mm3 (150-400); RDW Coefficient Variation 14.7 % (11.7-14.2); RDW Standard Deviation 48.5 fL (35.1-46.3); Red Blood Cell Count 4.52 M/mm3 (4.30-5.90); White Blood Cell Count 5.48 K/mm3 (4.00-11.30)
[2023-01-25 06:24] LABS: Albumin, Blood 3.4 g/dL (3.4-5.0); Bilirubin, Total 0.4 mg/dL (0.1-1.0); Bun/Creatinine Ratio 13.8 (12.0-20.0); Calcium, Blood 9.5 mg/dL (8.5-10.1); Creatinine, Blood 1.09 mg/dL (0.60-1.20); Globulin, Blood 3.4 g/dL (2.2-4.0); Magnesium, Blood 2.3 mg/dL (1.6-2.4); Potassium, Blood 3.7 mmol/L (3.5-5.5); Total Protein, Blood 6.8 g/dL (6.4-8.2)
[2023-01-25 10:33] LABS: Anti-Xa UFH, PHA Monitoring <0.10 IU/mL; International Normalized Ratio 0.98; Prothrombin Time Results 10.3 Sec (9.7-11.5)
--- NOTE | 2023-01-25 11:30 | NUR ---
PT ADMITTED TO ICU 15 FROM ER. PT ABLE TO PIVOT SELF TO BED. A/O X4, PLEASANT AND COOPERATIVE. DENIES CP OR PRESSURE. STATES AFTER NITRO GTT WAS STARTED HE IS PAIN FREE. WILL BE STARTING HEPARIN GTT PER PHARM. NO SIGN OF DISTRESS. ABLE TO USE CALL LIGHT APPROPRIATELY.
--- NOTE | 2023-01-25 13:30 | NUR ---
DR. TILLMAN IN TO SEE PT.
--- NOTE | 2023-01-25 15:00 | NUR ---
PT TAKEN TO FITNESS COACH VIA BED WITH 2 RNS
--- NOTE | 2023-01-25 16:35 | NUR ---
met with patient for theraputic visit will follow after cardiac intervention.
--- NOTE | 2023-01-25 17:12 | NUR ---
PT BACK TO ROOM FROM EVAPORATOR. PT HAS ANGIOSEAL TO R FEMORAL THAT IS SOFT, NON TENDER, NO HEMATOMA. FAILED L RADIAL SITE WITH GAUZE AND COBAN IN PLACE, SITE IS ALSO STABLE. PT IS A/O X4. NITRO GTT STILL RUNNING AT 20 MCG. PT STATES HE HAS 2/10 BURNING SENSATION IN CHEST AND THAT DR. TILLMAN TOLD HIM THAT WAS TO BE EXPECTED DUE TO PROCEDURE. PT EDUCATED ABOUT PRECAUTIONS OF HAVING GROIN ACCESS SITE. PT IS COOPERATIVE WITH PRECAUTIONS AND ASKS APPROPRIATE QUESTIONS.
[2023-01-26] VITALS (37 sets, daily range): BP systolic 101–134; BP diastolic 41–92
--- NOTE | 2023-01-26 06:09 | NUR ---
PATIENT AOX4. SR WITH STABLE BP. CP 0-2, ABLE TO TURN OFF NITROGLYCERIN AT 0520. TOLERATING DIET. SMALL AMOUNT OF BLOOD AT R. GROIN SITE, SOFT TO THE TOUCH.
--- NOTE | 2023-01-26 09:30 | NUR ---
MED CHANGES/DR. LOPEZ TO BEDSIDE NEW MEDICATION ORDERS FROM DR. ARGUETA TO START PLAVIX, CARDIZEM, AND RANEXA AND DC NITROGLYCERIN GTT. PATIENT REQUESTED A LIST OF THE MEDS TO RESEARCH INDEPENDENTLY AND WILL NOTIFY THIS NURSE WHICH MEDICATIONS HE AGREES TO TAKING. DR. LOPEZ TO BEDSIDE TO EVALUATE PATIENT. ORDER RECEIVED TO DC IV PEPCID D/T PATIENT REFUSAL TO TAKE IT.
--- NOTE | 2023-01-26 10:18 | NUR ---
PALLIATIVE CARE CONVERSATION AFTER RESEARCHING THE MEDICATIONS, THE PATIENT NOTIFIED THIS NURSE THAT HE DOES NOT WANT THE CARDIZEM OR RANEXA, BUT AGREES TO TAKE THE PLAVIX. CONVERSATION REGARDING GOALS OF CARE WITH THE PATIENT REVEALED THAT HE DOES NOT WISH TO SEEK CURATIVE TREATMENT. HE INSTEAD WISHES TO SEEK WAYS TO IMPROVE QUALITY OF LIFE FOR THE TIME HE HAS LEFT. I EXPLAINED PALLIATIVE CARE TO THE PATIENT AND HE WAS AGREEABLE TO MEET WITH PALLIATIVE CARE NURSES. CHENTE NGUYEN CALLED TO SPEAK WITH PATIENT. DR. LOPEZ UPDATED ON THE ABOVE.
--- NOTE | 2023-01-26 10:49 | NUR ---
RANEXA DISCUSSED WITH PATIENT THAT NITROGLYCERIN CANNOT BE CONTINUED AND DISCUSSED NEW MEDICATIONS. PATIENT ULTIMATELY DECIDED TO START WITH RANEXA. RANEXA ADMINISTERED PER EMAR.
--- NOTE | 2023-01-26 12:01 | NUR ---
AGITATION PATIENT IS SITTING IN RECLINER EATING LUNCH WHEN THIS NURSE WENT TO ASK IF HE HAD ANY DESIRE TO TAKE THE CARDIZEM OR IF HE WOULD LIKE TO REFUSE IT. THE PATIENT PROCEEDED TO STATE HE WAS "TERRIFIED" OF THE ONE HE PREVIOUSLY TOOK-SPEAKING OF THE RANEXA. WHEN ASKED IF HE WAS FEELING ANY SIDE EFFECTS HE REPSONDED NO HE WAS NOT. THE PATIENT THEN PROCEEDED TO STATE THE TOE PUNCHER HERE SHOULD BE FIRED FOR THE FOOD HE WAS SERVED FULL OF "STARCH AND PROCESSED FOOD". THEN HE PROCEEDED TO PUSH THE TABLE WITH THE FOOD TRAY AWAY FROM HIM WITH HIS FEET. WHEN I ASKED HIM NOT TO PUSH AROUND THE FURNITURE HE STATED "I DIDN'T EVEN PUSH IT THAT HARD. DON'T MAKE A THIS A BIG THING" AND WAVED AWAY THIS NURSE.
--- NOTE | 2023-01-26 14:02 | NUR ---
Pt expressed frustration with his chronic chest pain. He states he's tired of taking medications, and does not want to start a new medicine. He's currently on a nitroglyceryn drip, but the goal is to titrate him off as it will lose efficacy. The patient understands after the angiogram yesterday, he is out of cardiac interventions. We then discussed comfort care/hospice, and pt states that is exactly the kind of care he needs. Plan to try Roxanol for the pt's chronic chest pain, and continue to titrate for effectiveness. ICU bedside RN placed call to Dr. Rose, and placed patient on comfort care with plan for discharge home with hospice. [facility] also [facility].
--- NOTE | 2023-01-26 17:36 | NUR ---
SHIFT SUMMARY PATIENT REMAINS ON COMFORT CARE IN PREPERATION FOR DISCHARGE TO HOSPICE. NITRO GTT TURNED OFF THIS SHIFT AND REMAINS FREE FROM CP WITH THE USE OF ROXANOL. PATIENT STANDS WITH SBA TO URINATE USING URINAL. ONE BM THIS SHIFT. NO OTHER CHANGES THIS SHIFT.
--- NOTE | 2023-01-27 04:52 | NUR ---
SHIFT SUMMARY PT NOW COMFORT CARE. DNR STATUS. A&O. ABLE TO MAKE NEEDS KNOWN. VERBALIZES UNDERSTANDING PLAN OF CARE AND HOSPICE/COMFORT CARE. PT MEDICATED PER EMAR FOR PAIN. OTHERWISE PT DENIED OTHER COMPLAINTS. INDEPENDENT/SBA WITH ADL'S. BED IN LOWEST POSITION AND CALL LIGHT WITHIN REACH. THIS RN WILL REPORT TO ONCOMING DAYSHIFT RN.
--- NOTE | 2023-01-27 17:26 | NUR ---
SHIFT SUMMARY PATIENT MEDICATED ONCE WITH MORPHINE 5MG SL FOR CHEST PAIN PRIOR TO TRANSFERRING TO MEDICAL FLOOR. PATIENT WAS ABLE TO BE INDEPENDENT IN ROOM. NO DIZZINESS. TOLERATED PO INTAKE. REPORT GIVEN TO MED FLOOR NURSE AND PATIENT TAKEN TO ROOM 338 VIA WC.
--- NOTE | 2023-01-27 17:32 | NUR ---
PT ARRIVED TO UNIT VIA WHEELCHAIR ESCORT BY KAYA RUCKER RN WITH ALL BELONGINGS. ABLE TO SELF-AMBULATE. REPORTS NO C/O CHEST PAIN AT THIS TIME. ORIENTED TO ROOM. GIVEN WATER AND DECLINED ANY OTHER OFFERS AT THIS TIME.
--- NOTE | 2023-01-28 05:41 | NUR ---
SHIFT SUMMARY: PT IS ADMITTED FOR NSTEMI AND IS A DNR. IS CURRENTLY ON COMFORT CARE. IS ALERT AND ABLE TO MAKE NEEDS KNOWN. STBY ASSIST FOR MOST ADL S THIS SHIFT. IV TO RIGHT HAND IS PATENT WITH A DRESSING THAT IS CDI. WAS GIVEN PRN PAIN MANAGEMENT THIS SHIFT X 3
--- NOTE | 2023-01-28 13:47 | NUR ---
Discussed d/c home with hospice. Vance does not have a preferrence on hospice company, he would like next available. Corporate Safety Director notified of his hospice choice. Corporate Safety Director also notified of concer for obtaining Rx's upon discharge home. Pt requested this RN have a confrence call with he and his twin sister Aimee [phone]). Aimee lives in [place]. However, she will be coming she will be coming down [facility] to see pt on . Vance's primary concern is going home without Nitro tabs or Roxanol for chest pain symptom releif. One challenge is obtaining his medications as an outpatient. Vance does not drive and is not able to afford to pay out of pocket for medications. He reports being [facility]% [facility] service [facility]. [facility] He is no longer able to make it [facility].
--- NOTE | 2023-01-28 17:17 | NUR ---
SHIFT SUMMARY A&OX4, COOPERATIVE WITH CARE, INDEPENDENT. EXPERIENCED CHEST PAIN T/O SHIFT, MEDICATED WITH ROXANOL 5MG EACH TIME. NO ACUTE CHANGES THIS SHIFT. PLAN FOR DISCHARGE TO [facility] TOMORROW. PATIENT IS RESTING IN BED. CALL LIGHT WITHIN REACH.
--- NOTE | 2023-01-29 03:06 | NUR ---
CASANDRA SHIFT SUMMARY REMAINS ON COMFORT CARE. ALERT AND ORIENTED. JOKED WITH NURSE A FEW TIMES. HAS BEEN RESTING QUIETLY INTERMITTENTLY THOUGH SHIFT. NO NOTED S/S ACUTE DISTRESS. CALL LIGHT IN REACH.
--- NOTE | 2023-01-29 04:57 | NUR ---
C/O CP - VOICED TAKES NITRO SL AT HOME. MD NOTIFIED AND NITRO SL ORDERED - SEE MAR FOR DETAILS. NITRO EFFECTIVE
[2023-01-29] MEDS ORDERED: MORP20L SL (11:23)
[2023-01-29] MEDS ORDERED: ROXICODONE INTENSOL PO (11:27)
--- NOTE | 2023-01-29 11:36 | NUR ---
DISCHARGE PATIENT DISCHARGE HOME ON HOSPICE WITH [facility]. COMPLAINED OF CHEST PAIN, BUT DID NOT NEED MEDICATION THIS SHIFT. [facility]IV[facility] AND ESCORTED PATIENT OUT AT 1130. DISCHARGE PACKET REVIEWED WITH PATIENT. EXPLAINED HOW TO OBTAIN MEDICAL RECORDS. HE VERBALIZED UNDERSTANDING AND HAD NO QUESTIONS OR CONCERNS.
== END 2023-01-29 12:01 | disposition hospice, home (50) | DRG 250 ==
LOC: ER 05:33 → ICUE 09:56 → MEDS 09:56 → ICUE 11:32 → MEDS 01-27 17:01
PROVIDERS: Student in an Organized Health Care Education/Training Program; ADMIT Internal Medicine
PROC: 02703ZZ Dilation of Coronary Artery, One Artery, Percutaneous Approach (ICD-10-PCS; principal; 2023-01-25)
PROC: B2111ZZ Fluoroscopy of Multiple Coronary Arteries using Low Osmolar Contrast (ICD-10-PCS; 2023-01-25)
PROC: 4A023N7 Measurement of Cardiac Sampling and Pressure, Left Heart, Percutaneous Approach (ICD-10-PCS; 2023-01-25)
PROC: B2181ZZ Fluoroscopy of Left Internal Mammary Bypass Graft using Low Osmolar Contrast (ICD-10-PCS; 2023-01-25)
PROC: B2131ZZ Fluoroscopy of Multiple Coronary Artery Bypass Grafts using Low Osmolar Contrast (ICD-10-PCS; 2023-01-25)
DX: I97.190 Other postprocedural cardiac functional disturbances following cardiac surgery (principal); I21.A9 Other myocardial infarction type; T82.218A Other mechanical complication of coronary artery bypass graft, initial encounter; E78.5 Hyperlipidemia, unspecified; I10 Essential (primary) hypertension; I25.709 Atherosclerosis of coronary artery bypass graft(s), unspecified, with unspecified angina pectoris; E11.9 Type 2 diabetes mellitus without complications; J44.9 Chronic obstructive pulmonary disease, unspecified; I25.119 Atherosclerotic heart disease of native coronary artery with unspecified angina pectoris; Y84.9 Medical procedure, unspecified as the cause of abnormal reaction of the patient, or of later complication, without mention of misadventure at the time of the procedure; Z51.5 Encounter for palliative care; Z95.1 Presence of aortocoronary bypass graft; Z88.8 Allergy status to other drugs, medicaments and biological substances; Z91.048 Other nonmedicinal substance allergy status; Z79.82 Long term (current) use of aspirin; Z79.899 Other long term (current) drug therapy; Z79.02 Long term (current) use of antithrombotics/antiplatelets; Z95.5 Presence of coronary angioplasty implant and graft; Z98.890 Other specified postprocedural states; Z87.891 Personal history of nicotine dependence; Z91.148 Patient's other noncompliance with medication regimen for other reason; Z86.73 Personal history of transient ischemic attack (TIA), and cerebral infarction without residual deficits
CPT/HCPCS: 36415; 71045; 76937; 80053; 83735; 84484; 85025; 85520; 85610; 85730; 92937; 93005; 93010; 93459; 96374-59; 96375-59; 99152; 99153; 99285-25; A9270; C1725; C1760; C1769; C1887; C1894; J1644; J1885; J2250; J3010; J3246; J7030; J7050; Q9967